=== PATIENT | female | born 1985 | race Two or more races ===

== ENCOUNTER 2017-03-04 20:41 | Emergency (ER) | payer SELFPAY ==
[2017-03-04 20:59] VITALS: BP 119/72
[2017-03-04 23:08] LABS: APPEARANCE,URINE CLEAR; BILIRUBIN,URINE NEGATIVE (NEGATIVE); GLUCOSE, URINE NEGATIVE (NEGATIVE); KETONES,URINE TRACE mg/dL (NEGATIVE); LEUKOCYTE ESTERASE,URINE SMALL (NEGATIVE); NITRITE,URINE NEGATIVE (NEGATIVE); PROTEIN,URINE NEGATIVE (NEGATIVE); URINE SPECIFIC GRAVITY 1.009; UROBILINOGEN,URINE NEGATIVE mg/dL (<2.0)
--- NOTE | 2017-03-04 23:27 | ER Document Report ---
ED Medical Screen (RME) - General Chief Complaint: Flank Pain Stated Complaint: HEADACHE Time Seen by Provider: 03/04/17 23:20 Mode of Arrival: Ambulatory Information source: Patient Notes: 1-year-old female presents to ED for right flank pain pain with urination since Friday. She states she took Azo [id number]. This morning she had severe pain with urination and felt heavy like she could not walk or go anywhere so she came into the emergency room to get checked out. She states she has not had any vaginal pain or itching. He states he had similar symptoms 4 weeks ago. Past medical history is for a right fracture with surgical repair. She denies smoking drinking or using drugs. 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 She had a UA done earlier there was ordered before I saw her it is negative. According to the patient she also had some IV fluids given. She states she feels a little better but she is tired and she feels like her legs are heavy. States her last menstrual period was in the beginning of January it is time for her. Again she takes her control irregularly. I have greeted and performed a rapid initial assessment of this patient. A comprehensive ED assessment and evaluation of the patient, analysis of test results and completion of medical decision making process will be conducted by an additional ED providers. TRAVEL OUTSIDE OF THE [place] IN LAST 30 DAYS: No - Related Data Allergies/Adverse Reactions: No Known Allergies Allergy (Unverified 03/04/17 23:21) Past Medical History Renal/ Medical History: Denies: Hx Peritoneal Dialysis Physical Exam - Vital signs Vitals: Temp Pulse Resp BP Pulse Ox 99.7 F 98 22 H 119/72 100 03/04/17 20:54 03/04/17 20:54 03/04/17 20:54 03/04/17 20:54 03/04/17 20:54 Course - Vital Signs Vital signs: Temp Pulse Resp BP Pulse Ox 99.7 F 98 22 H 119/72 100 03/04/17 20:54 03/04/17 20:54 03/04/17 20:54 03/04/17 20:54 03/04/17 20:54 - Laboratory Laboratory results interpreted by me: 03/04/17 22:39 Urine Ketones TRACE H Urine Blood SMALL H Ur Leukocyte Esterase SMALL H
[2017-03-04 23:46] LABS: ABSOLUTE LYMPHOCYTES (AUTO) 1.3 10^3/uL (0.5-4.7); BASOPHILS % (AUTO) 0.6 % (0-2); EOSINOPHILS % (AUTO) 0.3 % (0-6); HEMATOCRIT 32.6 % (36.0-47.0); HEMOGLOBIN 11.2 g/dL (12.0-15.5); MEAN CORPUSCULAR HEMOGLOBIN 29.4 pg (27.0-33.4); MEAN CORPUSCULAR HGB CONC 34.3 g/dL (32.0-36.0); MEAN CORPUSCULAR VOLUME 86 fl (80-97); MONOCYTES % (AUTO) 13.6 % (3-13); RED BLOOD COUNT 3.81 10^6/uL (3.72-5.28); RED CELL DISTRIBUTION WIDTH 12.6 % (11.5-14.0); SEGMENTED NEUTROPHILS % (AUTO) 67.5 % (42-78); WHITE BLOOD COUNT 7.5 10^3/uL (4.0-10.5)
[2017-03-04 23:55] LABS: ALANINE AMINOTRANSFERASE 43 U/L (9-52); ALBUMIN 4.1 g/dL (3.5-5.0); ALKALINE PHOSPHATASE 68 U/L (38-126); ANION GAP 10 (5-19); ASPARTATE AMINO TRANSFERASE 26 U/L (14-36); BILIRUBIN,DIRECT 0.4 mg/dL (0.0-0.4); BILIRUBIN,TOTAL 0.8 mg/dL (0.2-1.3); BLOOD UREA NITROGEN 8 mg/dL (7-20); CALCIUM 8.9 mg/dL (8.4-10.2); CARBON DIOXIDE 23 mmol/L (22-30); CHLORIDE 105 mmol/L (98-107); CREATININE RESULT 0.68 mg/dL (0.52-1.25); GLUCOSE 97 mg/dL (75-110); LIPASE 135.9 U/L (23-300); TOTAL PROTEIN 7.1 g/dL (6.3-8.2)
== END 2017-03-04 23:45 | disposition left against medical advice (07) ==
LOC: ER 20:41
DX: R10.9 Unspecified abdominal pain (principal); R51 Headache; R30.0 Dysuria
CPT/HCPCS: 36415; 80053; 81001; 83690; 84703; 85025; 99281

== ENCOUNTER 2017-06-06 08:58 | Emergency (ER) | payer BC ==
--- NOTE | 2017-06-06 11:18 | ER Document Report ---
ED General - General Chief Complaint: Nausea/Vomiting/Diarrhea Stated Complaint: VOMITING, DIARRHEA, WEAKNESS Time Seen by Provider: 06/06/17 11:17 Mode of Arrival: Ambulatory Information source: Patient, Relative Notes: 32-year-old female with no significant past medical history presents with complaint of nausea, vomiting, diarrhea that started 1 day prior to arrival. Patient states that she has had greater than 10 episodes of nonbilious nonbloody vomiting and over 20 episodes of nonbloody diarrhea. She has associated abdominal cramping which is intermittent and diffusely located. She has not tried any [id number] medications for this. She denies any recent travel, antibiotic use or sick contacts. Last menstrual period was May 2017. She denies any chance of . She denies any dysuria, hematuria, or vaginal discharge. TRAVEL OUTSIDE OF THE [place] IN LAST 30 DAYS: No - Related Data Allergies/Adverse Reactions: No Known Allergies Allergy (Unverified 03/04/17 23:21) Past Medical History - General Information source: Patient - Social History Smoking Status: Never Smoker Chew tobacco use (# tins/day): No Frequency of alcohol use: None Drug Abuse: None Lives with: Family Family History: Reviewed & Not Pertinent Patient has suicidal ideation: No Patient has homicidal ideation: No - Medical History Medical History: Negative Renal/ Medical History: Denies: Hx Peritoneal Dialysis Review of Systems - Review of Systems Constitutional: Chills, Weakness Gastrointestinal: Abdominal pain, Diarrhea, Nausea, Vomiting Genitourinary: denies: Dysuria, Frequency, Flank pain Physical Exam - Vital signs Vitals: Temp Pulse Resp BP Pulse Ox 98.9 F 107 H 24 H 116/69 94 06/06/17 09:27 06/06/17 09:27 06/06/17 09:27 06/06/17 09:27 06/06/17 09:27 - General General appearance: Alert In distress: Mild - HEENT Head: Normocephalic Eyes: Normal Extraocular movements intact: Yes Mucous membranes: Dry - Abdominal Inspection: Normal Distension: No distension Bowel sounds: Normal Tenderness: Tender - Mild diffuse tenderness of the epigastric and right and left upper quadrant Organomegaly: No organomegaly - Back Back: Normal, Nontender. No: CVA tenderness - Neurological Neuro grossly intact: Yes Cognition: Normal Orientation: AAOx4 Bow Coma Scale Eye Opening: Spontaneous Bow Coma Scale Verbal: Oriented Bow Coma Scale Motor: Obeys Commands Bow Coma Scale Total: 15 Speech: Normal Motor strength normal: LUE, RUE, LLE, RLE Sensory: Normal Course - Re-evaluation Re-evalutation: 06/06/17 20:17 32 y/o female presents with one day h/o n/v/d. Upon arrival vital were reviewed , she is afebrile, normotensive and not hypoxic. Patient appears ill and mildy dehydrated but not toxic. Exam is significant for dry mucus membranes and mild diffuse abdominal discomfort. Patient received IV fluids, zofran and toradol. on re-evaluation patient still c/o nausea and abdominal pain and then received reglan, dilaudid and additional fluids. Patient also received Bactrim for a UTI. On second re-evaluation patient is resting comfortably. she states nausea and pain have resolved and is she is tolerating fluids. Findings discussed with the patient who is agreeable with discharge home. Rx's for bactrim and zofran were provided to the patient. Laboratory 06/06/17 06/06/17 09:46 11:20 Sodium 140.1 Potassium 4.6 Chloride 104 Carbon Dioxide 21 L Anion Gap 15 BUN 16 Creatinine 0.76 Est GFR ( Amer) > 60 Est GFR (Non-Af Amer) > 60 Glucose 165 H Calcium 9.9 Total Bilirubin 1.2 Direct Bilirubin 0.5 H Neonat Total Bilirubin Not Reportable Neonat Direct Bilirubin Not Reportable Neonat Indirect Bili Not Reportable AST 25 ALT 23 Alkaline Phosphatase 60 Total Protein 8.4 H Albumin 4.9 Urine Color YELLOW Urine Appearance CLOUDY Urine pH 5.0 Ur Specific [place] 1.032 Urine Protein NEGATIVE Urine Glucose (UA) NEGATIVE Urine Ketones NEGATIVE Urine Blood MODERATE H Urine Nitrite NEGATIVE Urine Bilirubin NEGATIVE Urine Urobilinogen NEGATIVE Ur Leukocyte Esterase LARGE H Urine WBC (Auto) 47 Urine RBC (Auto) 15 Urine Bacteria (Auto) TRACE Squamous Epi Cells Auto 19 Urine Mucus (Auto) RARE Urine Ascorbic Acid NEGATIVE Urine HCG, Qual NEGATIVE - Vital Signs Vital signs: Temp Pulse Resp BP Pulse Ox 97.7 F 80 16 105/89 H 97 06/06/17 16:50 06/06/17 16:50 06/06/17 16:50 06/06/17 16:50 06/06/17 16:50 - Laboratory Result Diagrams: 06/06/17 09:46 Laboratory results interpreted by me: 06/06/17 06/06/17 09:46 11:20 Carbon Dioxide 21 L Glucose 165 H Direct Bilirubin 0.5 H Total Protein 8.4 H Urine Blood MODERATE H Ur Leukocyte Esterase LARGE H Discharge - Discharge Clinical Impression: Nausea vomiting and diarrhea, Urinary tract infection Condition: Good Disposition: HOME, SELF-CARE Instructions: Diarrhea, Nonspecific ([facility]), Urinary Tract Infection ([facility]), Vomiting ([facility]) Prescriptions: Ondansetron [Zofran Odt 4 mg Tablet] 1 - 2 tab PO Q4H PRN #15 tab.rapdis PRN Reason: For Nausea/Vomiting Sulfamethoxazole/Trimethoprim [Bactrim Ds Tablet] 1 each PO BID 5 Days #10 tablet Referrals: [facility] [Provider Group] - Follow up as needed
[2017-06-06] MEDS ORDERED: ONDANSETRON HCL INJ/PF 4 MG/2 ML SDV IV ONE (11:45)
[2017-06-06] MEDS ORDERED: DICYCLOMINE HCL 20 MG TABLET PO ONE (11:46)
[2017-06-06] MEDS ORDERED: NORMAL SALINE 1000 ML 1,000 ML IV PRN (11:46)
[2017-06-06 12:26] LABS: ALANINE AMINOTRANSFERASE 23 U/L (9-52); ALBUMIN 4.9 g/dL (3.5-5.0); ALKALINE PHOSPHATASE 60 U/L (38-126); ANION GAP 15 (5-19); ASPARTATE AMINO TRANSFERASE 25 U/L (14-36); BILIRUBIN,DIRECT 0.5 mg/dL (0.0-0.4); BILIRUBIN,TOTAL 1.2 mg/dL (0.2-1.3); BLOOD UREA NITROGEN 16 mg/dL (7-20); CALCIUM 9.9 mg/dL (8.4-10.2); CARBON DIOXIDE 21 mmol/L (22-30); CHLORIDE 104 mmol/L (98-107); GLUCOSE 165 mg/dL (75-110); POTASSIUM 4.6 mmol/L (3.6-5.0); SODIUM 140.1 mmol/L (137-145); TOTAL PROTEIN 8.4 g/dL (6.3-8.2)
[2017-06-06 12:46] LABS: APPEARANCE,URINE CLOUDY; BILIRUBIN,URINE NEGATIVE (NEGATIVE); COLOR,URINE YELLOW; GLUCOSE, URINE NEGATIVE (NEGATIVE); KETONES,URINE NEGATIVE (NEGATIVE); LEUKOCYTE ESTERASE,URINE LARGE (NEGATIVE); NITRITE,URINE NEGATIVE (NEGATIVE); PROTEIN,URINE NEGATIVE (NEGATIVE); URINE SPECIFIC GRAVITY 1.032; UROBILINOGEN,URINE NEGATIVE mg/dL (<2.0)
[2017-06-06] MEDS ORDERED: SULFAMETHOXAZOLE/TRIMETHOPRIM 800-160 MG TABLET PO ONE (14:33)
[2017-06-06] MEDS ORDERED: METOCLOPRAMIDE HCL 10 MG TABLET PO ONE (14:45)
[2017-06-06] MEDS ORDERED: KETOROLAC TROMETHAMINE INJ/PF 30 MG/1 ML SDV IV ONE (14:45)
[2017-06-06] MEDS ORDERED: HYDROMORPHONE HCL INJ/PF 2 MG/ML AMPULE IV ONE (14:46)
[2017-06-06 17:02] VITALS: BP 105/89
== END 2017-06-06 16:50 | disposition home or self-care (01) ==
LOC: ER 08:58
DX: N39.0 Urinary tract infection, site not specified (principal); R11.2 Nausea with vomiting, unspecified; R19.7 Diarrhea, unspecified; R53.1 Weakness
CPT/HCPCS: 99283; 96361; 96374; 96375; 36415; 81025; 80053; 81001; J3490; J1885; J1170; J2405; J7030